=== PATIENT | female | born 1925 | race Caucasian/White ===

== ENCOUNTER 2016-07-09 10:24 | Inpatient (IN) | payer MEDICARE, OTHER ==
[~2016-07-09] VITALS: Ht 160 cm; Wt 69.4 kg
[2016-07-09 11:01] LABS: PH 5 (5-8); SQUAMOUS EPITHELIAL None Seen /hpf; URINE APPEARANCE Clear; URINE BACTERIA Rare /hpf; URINE BILIRUBIN Negative (NEGATIVE); URINE BLOOD 1+ (NEGATIVE); URINE COLOR Yellow; URINE GLUCOSE Negative (NEGATIVE); URINE KETONE Negative (NEGATIVE); URINE RBC 0-2 /hpf; URINE UROBILINOGEN Negative (NEGATIVE); URINE WBC 0-2 /hpf
[2016-07-09 11:35] LABS: BASO # 0.1 (0.0-0.2); BASO % 0.5 % (0.0-2.0); EOS # 0.1 (0.0-0.7); EOS % 0.9 % (0-4.0); GRAN # 8.3 (1.4-6.5); GRAN % 70.8 % (42.2-75.2); HEMOGLOBIN 12.2 g/dl (12.5-16.0); LYMPH # 2.4 (1.2-3.4); LYMPH % 20.1 % (20.0-51.0); MEAN CELL VOLUME 91 fl (80.0-100.0); MEAN CORPUSCULAR HEMOGLOBIN 31 pg (27.0-31.0); MEAN CORPUSCULAR HGB CONC 34 g/dl (33.0-37.0); MEAN PLATELET VOLUME 11.2 fl (7.4-10.4); MONO # 0.9 (0.1-0.6); MONO % 7.4 % (1.7-9.3); PLATELET COUNT 162 K/mm3 (130-400); RED BLOOD COUNT 3.97 M/mm3 (4.10-5.30); REDCELL DISTRIBUTION WIDTH-CV 14.6 % (11.5-14.5); WHITE BLOOD COUNT 11.7 K/mm3 (4.8-10.8)
[2016-07-09 11:36] LABS: ADJUSTED CALCIUM 9.5 mg/dL (8.4-10.2); ALBUMIN 3.9 gm/dL (3.5-5.0); CALCIUM 9.4 mg/dL (8.4-10.2); CREATININE, serum 0.84 mg/dL (0.52-1.25); POTASSIUM 3.8 mmol/L (3.4-5.0); TOTAL PROTEIN 7.2 gm/dL (6.4-8.2)
[2016-07-09 11:39] LABS: HEMATOCRIT 36.2 % (37.0-47.0)
[2016-07-09] MEDS ORDERED: BP MED (12:14)
[2016-07-09] MEDS ORDERED: CHOLESTERAL MED (12:15)
[2016-07-09] MEDS ORDERED: HEART PILL (12:15)
[2016-07-09] MEDS ORDERED: ALLERGY MED (12:15)
[2016-07-09 12:53] VITALS: BP 147/57; PULSE 85; TEMP 97.6
[2016-07-09] MEDS ORDERED: COZAAR 50MG50 MG/TAB PO (13:15)
[2016-07-09] MEDS ORDERED: LIPITOR20 MG PO (13:16)
[2016-07-09] MEDS ORDERED: SYNTHROID0.1 MG/TAB PO (13:17)
[2016-07-09] MEDS ORDERED: SYNTHROID0.112 MG/T PO (13:18)
[2016-07-09] MEDS ORDERED: NORVASC2.5 MG PO (13:19)
[2016-07-09] MEDS ORDERED: DITROPAN 5MG TAB5 MG PO (13:21)
[2016-07-09] MEDS ORDERED: ANORO IH (13:23)
[2016-07-09] MEDS ORDERED: ASMANEX TW0.22 MG/A1 IH (13:23)
[2016-07-09] MEDS ORDERED: ALEVE PM PO (13:25)
[2016-07-09] MEDS ORDERED: ASPIRIN 81M81 MG/TA2 PO (13:27)
[2016-07-09] MEDS ORDERED: PRILOSEC 20MG20 MG PO (13:28)
[2016-07-09] MEDS ORDERED: ZYRTEC 10MG10 MG PO (13:29)
[2016-07-09] MEDS ORDERED: ASTELIN NASAL S34 ML NAS (13:31)
[2016-07-09] MEDS ORDERED: ATROVENT NASAL15 ML NS (13:32)
[2016-07-09] MEDS ORDERED: RESTASIS 60VL OP (13:34)
[2016-07-09 16:08] VITALS: BP 128/48; PULSE 82; TEMP 98.3
[2016-07-09 20:27] VITALS: BP 128/49; PULSE 83; TEMP 98.5
[2016-07-10] VITALS (7 sets, daily range): BP systolic 113–168; BP diastolic 47–64; PULSE 74–81; TEMP 97.5–98.5
[2016-07-10 08:52] LABS: BASO # 0.1 (0.0-0.2); BASO % 0.8 % (0.0-2.0); EOS # 0.3 (0.0-0.7); EOS % 5.1 % (0-4.0); GRAN # 3.6 (1.4-6.5); GRAN % 57.9 % (42.2-75.2); LYMPH # 1.7 (1.2-3.4); LYMPH % 26.8 % (20.0-51.0); MEAN CELL VOLUME 95 fl (80.0-100.0); MEAN CORPUSCULAR HGB CONC 32 g/dl (33.0-37.0); MONO # 0.6 (0.1-0.6); MONO % 9.1 % (1.7-9.3); PLATELET COUNT 183 K/mm3 (130-400); RED BLOOD COUNT 3.44 M/mm3 (4.10-5.30); WHITE BLOOD COUNT 6.2 K/mm3 (4.8-10.8)
[2016-07-10 09:03] LABS: HEMATOCRIT 32.5 % (37.0-47.0); HEMOGLOBIN 10.5 g/dl (12.5-16.0); MEAN CORPUSCULAR HEMOGLOBIN 31 pg (27.0-31.0)
[2016-07-10 09:09] LABS: CALCIUM 8.8 mg/dL (8.4-10.2); CREATININE, serum 0.78 mg/dL (0.52-1.25); POTASSIUM 3.4 mmol/L (3.4-5.0)
[2016-07-11 04:18] VITALS: BP 138/56; PULSE 77; TEMP 98.4
[2016-07-11 08:24] VITALS: BP 146/61; PULSE 81; TEMP 97.7
[2016-07-11 08:26] LABS: BASO # 0.1 (0.0-0.2); EOS # 0.5 (0.0-0.7); EOS % 7.6 % (0-4.0); GRAN # 3.2 (1.4-6.5); GRAN % 52.8 % (42.2-75.2); LYMPH # 1.8 (1.2-3.4); LYMPH % 29.7 % (20.0-51.0); MEAN CELL VOLUME 91 fl (80.0-100.0); MEAN CORPUSCULAR HGB CONC 33 g/dl (33.0-37.0); MEAN PLATELET VOLUME 11.2 fl (7.4-10.4); MONO # 0.5 (0.1-0.6); MONO % 8.6 % (1.7-9.3); PLATELET COUNT 186 K/mm3 (130-400); RED BLOOD COUNT 3.75 M/mm3 (4.10-5.30); REDCELL DISTRIBUTION WIDTH-CV 14.6 % (11.5-14.5)
[2016-07-11 08:31] LABS: HEMATOCRIT 34.2 % (37.0-47.0); HEMOGLOBIN 11.4 g/dl (12.5-16.0); MEAN CORPUSCULAR HEMOGLOBIN 30 pg (27.0-31.0)
[2016-07-11 12:09] VITALS: BP 147/62; PULSE 83; TEMP 98.8
[2016-07-11 17:11] VITALS: BP 180/64; PULSE 76; TEMP 98.4
[2016-07-11 21:32] VITALS: BP 171/78; PULSE 82; TEMP 97.9
[2016-07-12 01:13] VITALS: BP 143/54; PULSE 73; TEMP 98.1
[2016-07-12 05:23] VITALS: BP 143/43; PULSE 94
[2016-07-12 08:37] VITALS: BP 146/57; PULSE 82; TEMP 98.3
[2016-07-12] MEDS ORDERED: NORVASC 5MG5 MG/TAB PO (09:57)
[2016-07-12] MEDS ORDERED: LEVAQUIN 750MG750 M1 PO (09:59)
[2016-07-12 11:57] VITALS: BP 179/68; PULSE 79; TEMP 97.8
== END 2016-07-12 16:11 | disposition home or self-care (01) | DRG 872 ==
LOC: COL.ER 10:24 → MEDICAL 11:28
PROVIDERS: Internal Medicine; Nurse Practitioner; Physician Assistant
DX: R78.81 Bacteremia (principal); I10 Essential (primary) hypertension; E78.5 Hyperlipidemia, unspecified; K21.9 Gastro-esophageal reflux disease without esophagitis; E03.9 Hypothyroidism, unspecified; B96.89 Other specified bacterial agents as the cause of diseases classified elsewhere; Z86.73 Personal history of transient ischemic attack (TIA), and cerebral infarction without residual deficits
CPT/HCPCS: OP; 99232-AI; 99239; G0378; J0692; J0696; J1650; J7030

== ENCOUNTER → 2016-07-30 | Outpatient (CLI) | payer MEDICARE, OTHER ==
[~2016-07-30] MED LIST: ALEVE PM PO; ALLERGY MED; ANORO IH; ASMANEX TW0.22 MG/A1 IH; ASPIRIN 81M81 MG/TA2 PO; ASTELIN NASAL S34 ML NAS; ATROVENT NASAL15 ML NS; BP MED; CHOLESTERAL MED; COZAAR 50MG50 MG/TAB PO; DITROPAN 5MG TAB5 MG PO; HEART PILL; LEVAQUIN 750MG750 M1 PO; LIPITOR20 MG PO; NORVASC 5MG5 MG/TAB PO; NORVASC2.5 MG PO; PRILOSEC 20MG20 MG PO; RESTASIS 60VL OP; SYNTHROID0.1 MG/TAB PO; SYNTHROID0.112 MG/T PO; ZYRTEC 10MG10 MG PO
[2016-07-30 13:13] LABS: BASO # 0.1 (0.0-0.2); EOS # 0.2 (0.0-0.7); EOS % 4.1 % (0-4.0); GRAN # 2.9 (1.4-6.5); GRAN % 49.9 % (42.2-75.2); LYMPH # 2.1 (1.2-3.4); LYMPH % 35.2 % (20.0-51.0); MEAN CELL VOLUME 93 fl (80.0-100.0); MEAN CORPUSCULAR HGB CONC 33 g/dl (33.0-37.0); MEAN PLATELET VOLUME 9.7 fl (7.4-10.4); MONO # 0.6 (0.1-0.6); MONO % 9.6 % (1.7-9.3); PLATELET COUNT 274 K/mm3 (130-400); RED BLOOD COUNT 3.82 M/mm3 (4.10-5.30); REDCELL DISTRIBUTION WIDTH-CV 14.7 % (11.5-14.5); WHITE BLOOD COUNT 5.9 K/mm3 (4.8-10.8)
[2016-07-30 13:16] LABS: HEMATOCRIT 35.6 % (37.0-47.0); HEMOGLOBIN 11.7 g/dl (12.5-16.0); MEAN CORPUSCULAR HEMOGLOBIN 31 pg (27.0-31.0)
[2016-07-30 13:26] LABS: ADJUSTED CALCIUM 9.7 mg/dL (8.4-10.2); ALANINE AMINOTRANSFERASE 32 U/L (9-52); ALBUMIN 3.7 gm/dL (3.5-5.0); ALKALINE PHOSPHATASE 62 U/L (50-136); ANION GAP 10 mmol/L (7-16); BILIRUBIN,TOTAL 0.7 mg/dL (0.0-1.0); BLOOD UREA NITROGEN 22 mg/dL (7-17); C-REACTIVE PROTEIN < 0.5 mg/dL (0.0-0.9); CALCIUM 9.5 mg/dL (8.4-10.2); CARBON DIOXIDE 23 mmol/L (22-30); CHLORIDE 104 mmol/L (98-107); CREATININE, serum 0.79 mg/dL (0.52-1.25); GLUCOSE 86 mg/dL (74-106); POTASSIUM 3.8 mmol/L (3.4-5.0); SODIUM 137 mmol/L (137-145); TOTAL PROTEIN 6.8 gm/dL (6.4-8.2)
[2016-07-30 13:35] LABS: ERYTHROCYTE SEDIMENTATION RATE 16 mm/hr (0-30)
== END ==
LOC: COL.LAB 12:30
PROVIDERS: Internal Medicine Infectious Disease
DX: A41.50 Gram-negative sepsis, unspecified (principal)